=== PATIENT | female | born 1995 | race Caucasian/White ===

== ENCOUNTER 2017-10-06 20:42 | Emergency (ER) | payer OTHER ==
[~2017-10-06] VITALS: Ht 160 cm; Wt 61.7 kg
[2017-10-06 21:46] VITALS: BP 128/74
== END 2017-10-06 21:49 | disposition home or self-care (01) ==
LOC: ED 21:10
DX: M70.42 Prepatellar bursitis, left knee (principal); M70.41 Prepatellar bursitis, right knee; Y93.89 Activity, other specified

== ENCOUNTER 2019-04-24 17:01 | Emergency (ER) | payer OTHER ==
[~2019-04-24] VITALS: Ht 160 cm; Wt 64.5 kg
[2019-04-24] MEDS ORDERED: DIAZEPAM 5 MG TABLET ONE (17:46)
[2019-04-24] MEDS ORDERED: KETOROLAC 30 MG/1 ML ONE (17:47)
[2019-04-24] MEDS ORDERED: DIAZEPAM 5 MG TABLET PO ONE (18:00)
[2019-04-24] MEDS ORDERED: KETOROLAC 30 MG/1 ML IM ONE (18:00)
[2019-04-24 18:24] VITALS: BP 106/65
== END 2019-04-24 18:28 | disposition home or self-care (01) ==
LOC: ED 18:22
DX: S29.012A Strain of muscle and tendon of back wall of thorax, initial encounter (principal); V49.49XA Driver injured in collision with other motor vehicles in traffic accident, initial encounter; Y93.89 Activity, other specified; Y92.89 Other specified places as the place of occurrence of the external cause; Y99.8 Other external cause status
CPT/HCPCS: 96372; 99283; J1885

== ENCOUNTER 2019-05-01 12:28 | Emergency (ER) | payer OTHER ==
[~2019-05-01] VITALS: Ht 160 cm; Wt 63.5 kg
[2019-05-01 12:29] VITALS: BP 126/60
== END 2019-05-01 14:22 | disposition home or self-care (01) ==
LOC: ED 14:16
DX: S39.012A Strain of muscle, fascia and tendon of lower back, initial encounter (principal); G89.11 Acute pain due to trauma; M54.6 Pain in thoracic spine; V49.49XA Driver injured in collision with other motor vehicles in traffic accident, initial encounter; Y93.89 Activity, other specified; Y92.410 Unspecified street and highway as the place of occurrence of the external cause; Y99.8 Other external cause status
CPT/HCPCS: 72072; 72110; 99283